=== PATIENT | male | born 1965 | race Caucasian/White ===

== ENCOUNTER 2022-07-29 18:34 | Inpatient (IN) | payer MEDICAID ==
[~2022-07-29] VITALS: Ht 180.3 cm; Wt 155.1 kg
[~2022-07-29 18:34] MED LIST: ATOR40TA7 PO; BUPR100T13 PO; GABAPENTIN 1200 MG; HYDROCODONE 10/325; LANS30CA37 PO; LISI40TA13 PO; ZOLP10TA PO
[2022-07-29] MEDS ORDERED: HYDROcodone/acetaminophen 10/325mg tab PO ONE (21:50)
[2022-07-29] MEDS ORDERED: furosemide 10 MG/1 ML 10ml inj IV ONE (21:50)
[2022-07-29 22:07] LABS: CLARITY,URINE CLEAR (Clear); COLOR,URINE YELLOW (Yellow); GLUCOSE, URINE 100 mg/dl (Neg); KETONES,URINE NEGATIVE (Neg); LEUKOCYTE ESTERASE ,URINE NEGATIVE (Neg); NITRITES, URINE NEGATIVE (Neg); OCCULT BLOOD,URINE NEGATIVE (Neg); PH,URINE 7.5 (4.8-8.0); PROTEIN,URINE NEGATIVE (Neg)
[2022-07-29 22:13] LABS: UA COLLECTION TYPE NON-SPECIFIED
[2022-07-29 22:36] LABS: BASOPHILS # (AUTO) 0.1 X10'3 (0-0.2); EOSINOPHILS # (AUTO) 0.3 X10'3 (0-0.9); EOSINOPHILS % (AUTO) 2.8 % (0-6); HEMATOCRIT 38.7 % (42.0-52.0); HEMOGLOBIN 12.6 g/dl (14.0-17.9); LYMPHOCYTES # (AUTO) 2.7 X10'3 (1.1-4.8); LYMPHOCYTES % (AUTO) 22.6 % (21-51); MEAN CORPUSCULAR HEMOGLOBIN 32.3 PG (27.0-31.0); MEAN CORPUSCULAR HGB CONC 32.7 g/dL (33.0-36.5); MEAN CORPUSCULAR VOLUME 98.9 FL (78-98); MEAN PLATELET VOLUME 6.1 FL (7.4-10.4); MONOCYTES # (AUTO) 1.1 X10'3 (0-0.9); MONOCYTES % (AUTO) 9.3 % (2-12); NEUTROPHILS # (AUTO) 7.7 X10'3 (1.8-7.7); NEUTROPHILS % (AUTO) 64.3 % (42-75); PLATELET COUNT 313 X10'3 (140-440); RED BLOOD COUNT 3.91 X10'6 (4.70-6.10); RED CELL DISTRIBUTION WIDTH 16.3 % (11.5-14.5); WHITE BLOOD COUNT 11.9 X10'3 (4.5-11.0)
[2022-07-29 22:57] LABS: ANISOCYTOSIS 1+; NUCLEATED RED BLOOD CELLS 2 /100WBC (0-0); PLATELET ESTIMATE NORMAL; TOTAL CELLS COUNTED 100; TOXIC GRANULATION 1+; TOXIC VACUOLATION FEW
[2022-07-29 22:58] LABS: POLYCHROMASIA FEW
[2022-07-29 22:59] LABS: ALANINE AMINOTRANSFERASE 24 U/L (12-78); ALBUMIN 3.2 G/DL (3.4-5.0); ALBUMIN/GLOBULIN RATIO 0.7 (1.1-1.5); ALKALINE PHOSPHATASE 129 IU/L (46-116); ANION GAP 10 (8-16); ASPARTATE AMINO TRANSFERASE 17 U/L (10-37); BILIRUBIN,TOTAL 0.3 MG/DL (0.1-1.0); BLOOD UREA NITROGEN 17 MG/DL (7-18); BUN/CREATININE RATIO 18.5 (5.4-32.0); CALCIUM 8.6 MG/DL (8.5-10.1); CHLORIDE 102 MMOL/L (99-107); CREATININE 0.92 MG/DL (0.60-1.10); GLUCOSE 125 MG/DL (70-104); MAGNESIUM 2.1 MG/DL (1.5-2.4); POTASSIUM 3.9 MMOL/L (3.5-5.1); SODIUM 142 MMOL/L (135-145); TOTAL CARBON DIOXIDE 30.4 MMOL/L (24-32); TOTAL PROTEIN 7.6 G/DL (6.4-8.2); eGFR 85 ML/MIN
[2022-07-29] MEDS ORDERED: vancomycin/NS 1 GM ADD-VANTAGE 250 ML IV ONE (23:15)
[2022-07-29] MEDS ORDERED: piperacillin/tazo 3.375gm/50ml 50 ML IV ONE (23:15)
--- NOTE | 2022-07-29 23:48 | NUR ---
PT PLACED ON 2L OF O2 DUE TO O2 SATURATION OF 86-88. PER PT HE USES 2L OF O2 AT HOME.
[2022-07-30] MEDS ORDERED: ondansetron 4mg rapidly disintigrating tab PO PRN (02:20)
[2022-07-30] MEDS ORDERED: HYDROmorphone inj. 0.5 MG/0.5 ML DISP.SYRIN IV PRN (02:20)
[2022-07-30] MEDS ORDERED: metoclopramide 5 mg/ml inj IV PRN (02:20)
[2022-07-30] MEDS ORDERED: magnesium hydroxide 30ml (MOM) UD suspension PO PRN (02:20)
[2022-07-30] MEDS ORDERED: diphenhydrAMINE 50 mg/ml inj IV PRN (02:20)
[2022-07-30] MEDS ORDERED: morphine 2 MG/ML inj. syringe IV PRN ×2 (02:20)
[2022-07-30] MEDS ORDERED: acetaminophen 650mg rectal suppository RC PRN (02:20)
[2022-07-30] MEDS ORDERED: bisacodyl 10mg suppository rectal RC PRN (02:20)
[2022-07-30] MEDS ORDERED: mag hydrox/Alum hydrox/simeth 30ml oral suspension PO PRN (02:20)
[2022-07-30] MEDS ORDERED: acetaminophen 325mg tablet PO PRN ×2 (02:20)
[2022-07-30] MEDS ORDERED: ondansetron/PF 4mg/2ml inj IV PRN (02:20)
[2022-07-30 02:57] LABS: URINE AMPHETAMINE SCREEN NEGATIVE (Neg); URINE BARBITUATE SCREEN NEGATIVE (Neg); URINE BENZODIAZEPINES SCREEN NEGATIVE (Neg); URINE CANNABINOID SCREEN NEGATIVE (Neg); URINE COCAINE SCREEN NEGATIVE (Neg); URINE METHADONE SCREEN NEGATIVE (Neg); URINE OPIATE SCREEN NEGATIVE (Neg); URINE PHENCYCLIDINE SCREEN NEGATIVE (Neg)
[2022-07-30 03:34] LABS: APTT 30 SECONDS (22-32)
[2022-07-30 03:36] LABS: HEMOGLOBIN A1C 6.9 % (4.5-6.2)
[2022-07-30 03:45] LABS: CREATINE KINASE 102 U/L (39-308); PHOSPHORUS 3.2 MG/DL (2.3-4.5)
[2022-07-30] MEDS ORDERED: piperacillin/tazo 4.5gm/100ml 100 ML IV SCH (08:00)
[2022-07-30] MEDS ORDERED: vancomycin/NS 1 GM ADD-VANTAGE 250 ML IV SCH (08:00)
[2022-07-30] MEDS: vancomycin/NS 1 GM ADD-VANTAGE 250 ML IV SCH ×2 (08:23→16:26)
[2022-07-30] MEDS: pantoprazole 40mg Tablet.DR PO SCH (08:24)
[2022-07-30] MEDS: docusate sod 100mg capsule PO SCH ×2 (08:24→20:00)
[2022-07-30] MEDS: heparin, porcine 5000 units/ml vial SQ SCH ×2 (08:24→16:37)
[2022-07-30] MEDS: furosemide 40mg/4ml inj IV SCH ×2 (13:14→20:32)
[2022-07-30] MEDS ORDERED: ARIP30TA22 PO (13:33)
[2022-07-30] MEDS ORDERED: ALBU18HF2 PO (13:33)
[2022-07-30] MEDS ORDERED: NAPR375T5 PO (13:33)
[2022-07-30] MEDS ORDERED: GABA600T13 PO (13:33)
[2022-07-30] MEDS ORDERED: TRAZ-256 PO (13:33)
[2022-07-30] MEDS ORDERED: PANT40TA54 PO (13:33)
[2022-07-30] MEDS ORDERED: FURO20TA4 PO (13:33)
[2022-07-30] MEDS ORDERED: TIOT18CA3 INH (13:33)
[2022-07-30] MEDS ORDERED: ATOR40TA72 PO (13:33)
[2022-07-30] MEDS: diphenhydrAMINE 25mg capsule PO PRN (15:44)
[2022-07-30] MEDS: HYDROcodone/acetaminophen 5mg/325mg tablet PO PRN (20:31)
[2022-07-30] MEDS ORDERED: temazepam 15mg capsule PO PRN (21:00)
[2022-07-30] MEDS ORDERED: VANCOMYCIN LEVEL IV ONE (23:30)
[2022-07-31] MEDS: nystatin 15 GM powder TP SCH ×4 (00:43→20:57)
[2022-07-31] MEDS: vancomycin/NS 1 GM ADD-VANTAGE 250 ML IV SCH ×2 (00:51→08:05)
[2022-07-31 04:39] LABS: BASOPHILS # (AUTO) 0.1 X10'3 (0-0.2); BASOPHILS % (AUTO) 0.8 % (0-1); EOSINOPHILS # (AUTO) 0.3 X10'3 (0-0.9); EOSINOPHILS % (AUTO) 3.2 % (0-6); HEMATOCRIT 34.8 % (42.0-52.0); HEMOGLOBIN 11.6 g/dl (14.0-17.9); LYMPHOCYTES # (AUTO) 2.2 X10'3 (1.1-4.8); LYMPHOCYTES % (AUTO) 21.8 % (21-51); MEAN CORPUSCULAR HEMOGLOBIN 33.2 PG (27.0-31.0); MEAN CORPUSCULAR HGB CONC 33.3 g/dL (33.0-36.5); MEAN CORPUSCULAR VOLUME 99.5 FL (78-98); MEAN PLATELET VOLUME 6.8 FL (7.4-10.4); MONOCYTES # (AUTO) 0.9 X10'3 (0-0.9); MONOCYTES % (AUTO) 8.7 % (2-12); NEUTROPHILS # (AUTO) 6.5 X10'3 (1.8-7.7); NEUTROPHILS % (AUTO) 65.5 % (42-75); PLATELET COUNT 301 X10'3 (140-440); RED CELL DISTRIBUTION WIDTH 16.4 % (11.5-14.5); WHITE BLOOD COUNT 9.9 X10'3 (4.5-11.0)
[2022-07-31 05:03] LABS: ALANINE AMINOTRANSFERASE 19 U/L (12-78); ALBUMIN 2.8 G/DL (3.4-5.0); ALBUMIN/GLOBULIN RATIO 0.7 (1.1-1.5); ALKALINE PHOSPHATASE 105 IU/L (46-116); ANION GAP 4 (8-16); ASPARTATE AMINO TRANSFERASE 18 U/L (10-37); BILIRUBIN,TOTAL 0.4 MG/DL (0.1-1.0); BLOOD UREA NITROGEN 17 MG/DL (7-18); BUN/CREATININE RATIO 18.9 (5.4-32.0); CALCIUM 8.6 MG/DL (8.5-10.1); CHLORIDE 103 MMOL/L (99-107); CHOL/HDL RATIO 2.8 (0.00-4.99); CHOLESTEROL 87 MG/DL (0-200); GLUCOSE 116 MG/DL (70-104); HDL CHOLESTEROL 31 MG/DL (35-60); LDL CHOLESTEROL 47 MG/DL (50-100); SODIUM 140 MMOL/L (135-145); TOTAL CARBON DIOXIDE 32.7 MMOL/L (24-32); TRIGLYCERIDES 85 MG/DL (20-135); eGFR 88 ML/MIN
[2022-07-31] MEDS: docusate sod 100mg capsule PO SCH ×2 (07:52→20:53)
[2022-07-31] MEDS: pantoprazole 40mg Tablet.DR PO SCH ×2 (07:52→20:53)
[2022-07-31] MEDS: HYDROcodone/acetaminophen 10/325mg tab PO PRN ×2 (07:53→21:00)
[2022-07-31] MEDS: heparin, porcine 5000 units/ml vial SQ SCH ×4 (07:53→23:49)
[2022-07-31] MEDS: furosemide 40mg/4ml inj IV SCH (07:53)
[2022-07-31] MEDS: vitamin A & D ointment-NF 1 APPLIC TUBE TP SCH (08:00)
--- NOTE | 2022-07-31 08:00 | NUR ---
A&D cream held as nystatin powder applied and pt to have skin cleansed later today and will apply cream afterwards.
[2022-07-31] MEDS ORDERED: MESSAGE TO PHARMACY PO ONE (12:45)
[2022-07-31] MEDS ORDERED: DEXTROSE 15 GM of carb/4 tabs (each vial/BOTTLE has 4 tablets) PO PRN ×2 (12:45)
[2022-07-31] MEDS ORDERED: insulin Lispro (HumaLOG) vial - multi-dose SQ SCH (12:45)
[2022-07-31] MEDS ORDERED: dextrose 50%-water 50ml dispensing syringe IV PRN ×2 (12:45)
[2022-07-31] MEDS ORDERED: glucagon, human recombinant 1mg kit SUBCUT PRN (12:45)
[2022-07-31 14:00] VITALS: BP 136/75
--- NOTE | 2022-07-31 14:00 | NUR ---
patient arrived to floor. vss.
[2022-07-31] MEDS: metFORMIN 500mg tablet PO SCH (17:00)
[2022-07-31] MEDS: ipratropium 0.5 MG/2.5ML nebule NEB SCH ×2 (17:00→20:15)
--- NOTE | 2022-07-31 17:46 | NUR ---
Student Medication Administration: For this medication-pass time frame, all medication were reviewed, dispensed, administered and documented per hospital policy by amalia salmeron student nurse with dev robledo instructor RN.
[2022-07-31] MEDS: VANCOmycin 1250MG/NS 250ml Bag 250 ML IV SCH ×2 (17:51→23:49)
[2022-07-31 19:43] VITALS: BP 134/79
[2022-07-31] MEDS: ARIPIPRAZOLE 15 MG TABLET PO SCH (20:52)
[2022-07-31] MEDS: traZODone 50mg tablet PO SCH (20:52)
[2022-07-31] MEDS: gabapentin 300mg capsule PO SCH (20:52)
[2022-07-31] MEDS: atorvastatin 20mg tablet PO SCH (20:52)
[2022-07-31] MEDS: furosemide 40mg tablet PO SCH (20:53)
[2022-07-31] MEDS: insulin glargine (Lantus) pen - multi-dose SQ SCH (20:57)
[2022-07-31 22:04] VITALS: BP 128/71
--- NOTE | 2022-07-31 23:53 | NUR ---
Problems reprioritized. Patient report given, questions answered & plan of care reviewed with SHIELA Diaz.
--- NOTE | 2022-08-01 | NUR ---
Patient in room [facility]. I have received report from RONDA and had the opportunity to ask questions and assume patient care. PT RESTING AT THIS TIME
[2022-08-01] MEDS: HYDROcodone/acetaminophen 10/325mg tab PO PRN (00:58)
[2022-08-01] MEDS: ipratropium 0.5 MG/2.5ML nebule NEB SCH ×4 (03:55→21:16)
--- NOTE | 2022-08-01 06:36 | NUR ---
Patient in room [facility]. I have received report from Dian KUO and had the opportunity to ask questions and assume patient care.
[2022-08-01 06:38] LABS: BASOPHILS # (AUTO) 0.1 X10'3 (0-0.2); BASOPHILS % (AUTO) 1.1 % (0-1); EOSINOPHILS # (AUTO) 0.3 X10'3 (0-0.9); EOSINOPHILS % (AUTO) 3.3 % (0-6); HEMATOCRIT 34.6 % (42.0-52.0); HEMOGLOBIN 11.7 g/dl (14.0-17.9); LYMPHOCYTES # (AUTO) 2.4 X10'3 (1.1-4.8); LYMPHOCYTES % (AUTO) 25.2 % (21-51); MEAN CORPUSCULAR HEMOGLOBIN 33.5 PG (27.0-31.0); MEAN CORPUSCULAR HGB CONC 33.8 g/dL (33.0-36.5); MEAN CORPUSCULAR VOLUME 98.9 FL (78-98); MEAN PLATELET VOLUME 6.3 FL (7.4-10.4); MONOCYTES # (AUTO) 0.8 X10'3 (0-0.9); MONOCYTES % (AUTO) 8.2 % (2-12); NEUTROPHILS # (AUTO) 5.8 X10'3 (1.8-7.7); NEUTROPHILS % (AUTO) 62.2 % (42-75); PLATELET COUNT 295 X10'3 (140-440); RED CELL DISTRIBUTION WIDTH 16.1 % (11.5-14.5); WHITE BLOOD COUNT 9.3 X10'3 (4.5-11.0)
[2022-08-01 06:47] VITALS: BP 123/66
[2022-08-01 06:50] LABS: ALANINE AMINOTRANSFERASE 15 U/L (12-78); ALBUMIN 2.9 G/DL (3.4-5.0); ALBUMIN/GLOBULIN RATIO 0.7 (1.1-1.5); ALKALINE PHOSPHATASE 105 IU/L (46-116); ANION GAP 4 (8-16); ASPARTATE AMINO TRANSFERASE 24 U/L (10-37); BILIRUBIN,TOTAL 0.5 MG/DL (0.1-1.0); BLOOD UREA NITROGEN 16 MG/DL (7-18); BUN/CREATININE RATIO 18.4 (5.4-32.0); CALCIUM 8.7 MG/DL (8.5-10.1); CHLORIDE 100 MMOL/L (99-107); CREATININE 0.87 MG/DL (0.60-1.10); GLUCOSE 99 MG/DL (70-104); POTASSIUM 3.9 MMOL/L (3.5-5.1); SODIUM 137 MMOL/L (135-145); TOTAL CARBON DIOXIDE 32.8 MMOL/L (24-32); TOTAL PROTEIN 7.2 G/DL (6.4-8.2); eGFR > 90 ML/MIN
[2022-08-01] MEDS: metFORMIN 500mg tablet PO SCH ×3 (07:00→17:00)
[2022-08-01] MEDS: gabapentin 300mg capsule PO SCH ×2 (07:50→20:59)
[2022-08-01] MEDS: furosemide 40mg tablet PO SCH ×2 (07:50→20:59)
[2022-08-01] MEDS: pantoprazole 40mg Tablet.DR PO SCH ×2 (07:51→21:00)
[2022-08-01] MEDS: docusate sod 100mg capsule PO SCH ×2 (07:51→20:00)
[2022-08-01] MEDS: VANCOmycin 1250MG/NS 250ml Bag 250 ML IV SCH ×2 (07:52→16:59)
[2022-08-01] MEDS: nystatin 15 GM powder TP SCH ×3 (07:55→21:02)
[2022-08-01] MEDS: vitamin A & D ointment-NF 1 APPLIC TUBE TP SCH (07:55)
[2022-08-01] MEDS: heparin, porcine 5000 units/ml vial SQ SCH ×3 (07:58→23:50)
[2022-08-01] MEDS: CefTRIAXone/D5W-Rocephin 1gm 50 ML IV SCH (10:38)
[2022-08-01 11:11] VITALS: BP 131/81
--- NOTE | 2022-08-01 15:17 | NUR ---
PAGER ID: [phone] MESSAGE: Lenard Surg [id number] re: [id number] Raffi Ro Patient frequency of 2 to1 heart block increasing, and missed beats increasing to 6-7 dropping rate to 30's to 40's at times, did you want to transfer to tele? Thanks Lenard. Addendum: 08/01/22 at 1532 by Aaron Farias RN Conferred with and will attempt to clearify if transfer is need after calling jukebox route driver.
[2022-08-01] MEDS ORDERED: VANCOMYCIN LEVEL IV ONE (15:30)
[2022-08-01 18:00] VITALS: BP 139/78
--- NOTE | 2022-08-01 18:15 | NUR ---
Assumed care from Lenard KUO.
--- NOTE | 2022-08-01 18:48 | NUR ---
Problems reprioritized. Patient report given, questions answered & plan of care reviewed with DANIELLA KUO.
[2022-08-01] MEDS: insulin glargine (Lantus) pen - multi-dose SQ SCH (21:00)
[2022-08-01] MEDS: traZODone 50mg tablet PO SCH (21:00)
[2022-08-01] MEDS: atorvastatin 20mg tablet PO SCH (21:00)
[2022-08-01] MEDS: ARIPIPRAZOLE 15 MG TABLET PO SCH (21:00)
[2022-08-01] MEDS: HYDROcodone/acetaminophen 5mg/325mg tablet PO PRN (21:57)
[2022-08-01] MEDS: vancomycin/NS 1 GM ADD-VANTAGE 250 ML IV SCH (23:49)
[2022-08-02] MEDS: ipratropium 0.5 MG/2.5ML nebule NEB SCH ×4 (02:58→20:26)
[2022-08-02 06:00] VITALS: BP 130/78
[2022-08-02 06:17] LABS: BASOPHILS # (AUTO) 0.1 X10'3 (0-0.2); BASOPHILS % (AUTO) 1.4 % (0-1); EOSINOPHILS # (AUTO) 0.3 X10'3 (0-0.9); EOSINOPHILS % (AUTO) 3.1 % (0-6); HEMATOCRIT 35.7 % (42.0-52.0); LYMPHOCYTES # (AUTO) 2.1 X10'3 (1.1-4.8); LYMPHOCYTES % (AUTO) 23.6 % (21-51); MEAN CORPUSCULAR HEMOGLOBIN 33.2 PG (27.0-31.0); MEAN CORPUSCULAR HGB CONC 33.7 g/dL (33.0-36.5); MEAN CORPUSCULAR VOLUME 98.6 FL (78-98); MEAN PLATELET VOLUME 6.3 FL (7.4-10.4); MONOCYTES # (AUTO) 0.8 X10'3 (0-0.9); MONOCYTES % (AUTO) 8.8 % (2-12); NEUTROPHILS # (AUTO) 5.6 X10'3 (1.8-7.7); NEUTROPHILS % (AUTO) 63.1 % (42-75); PLATELET COUNT 298 X10'3 (140-440); RED BLOOD COUNT 3.62 X10'6 (4.70-6.10); WHITE BLOOD COUNT 8.8 X10'3 (4.5-11.0)
--- NOTE | 2022-08-02 06:39 | NUR ---
Report to Lenard KUO.
[2022-08-02] MEDS: metFORMIN 500mg tablet PO SCH ×3 (07:00→17:00)
[2022-08-02 07:03] LABS: ALANINE AMINOTRANSFERASE 16 U/L (12-78); ALBUMIN 2.9 G/DL (3.4-5.0); ALBUMIN/GLOBULIN RATIO 0.6 (1.1-1.5); ALKALINE PHOSPHATASE 103 IU/L (46-116); ANION GAP 3 (8-16); ASPARTATE AMINO TRANSFERASE 25 U/L (10-37); BILIRUBIN,TOTAL 0.5 MG/DL (0.1-1.0); BLOOD UREA NITROGEN 14 MG/DL (7-18); BUN/CREATININE RATIO 15.4 (5.4-32.0); CALCIUM 8.5 MG/DL (8.5-10.1); CHLORIDE 100 MMOL/L (99-107); CREATININE 0.91 MG/DL (0.60-1.10); GLUCOSE 98 MG/DL (70-104); POTASSIUM 3.8 MMOL/L (3.5-5.1); SODIUM 137 MMOL/L (135-145); TOTAL CARBON DIOXIDE 34.5 MMOL/L (24-32); TOTAL PROTEIN 7.4 G/DL (6.4-8.2); eGFR 86 ML/MIN
--- NOTE | 2022-08-02 07:03 | NUR ---
Patient in room [facility]. I have received report from Elena KUO and had the opportunity to ask questions and assume patient care.
[2022-08-02] MEDS: pantoprazole 40mg Tablet.DR PO SCH ×2 (07:39→21:03)
[2022-08-02] MEDS: docusate sod 100mg capsule PO SCH ×2 (07:39→21:03)
[2022-08-02] MEDS: gabapentin 300mg capsule PO SCH ×2 (07:40→21:03)
[2022-08-02] MEDS: furosemide 40mg tablet PO SCH ×2 (07:40→21:03)
[2022-08-02] MEDS: heparin, porcine 5000 units/ml vial SQ SCH ×3 (07:41→23:44)
[2022-08-02] MEDS: vancomycin/NS 1 GM ADD-VANTAGE 250 ML IV SCH ×3 (07:43→23:44)
[2022-08-02] MEDS: nystatin 15 GM powder TP SCH ×3 (07:48→21:02)
[2022-08-02] MEDS: vitamin A & D ointment-NF 1 APPLIC TUBE TP SCH (07:49)
[2022-08-02 10:00] VITALS: BP 135/79
[2022-08-02] MEDS: CefTRIAXone/D5W-Rocephin 1gm 50 ML IV SCH (10:28)
[2022-08-02 18:31] VITALS: BP 137/77
--- NOTE | 2022-08-02 18:40 | NUR ---
Problems reprioritized. Patient report given, questions answered & plan of care reviewed with Maria KUO.
[2022-08-02] MEDS: insulin glargine (Lantus) pen - multi-dose SQ SCH (21:00)
[2022-08-02] MEDS: ARIPIPRAZOLE 15 MG TABLET PO SCH (21:03)
[2022-08-02] MEDS: atorvastatin 20mg tablet PO SCH (21:03)
[2022-08-02] MEDS: traZODone 50mg tablet PO SCH (21:03)
--- NOTE | 2022-08-02 21:04 | NUR ---
PATIENT REFUSING BLOOD SUGAR CHECKS TONIGHT. STATES HIS FINGERS ARE GETTING SORE.
[2022-08-02 22:42] VITALS: BP 129/65
[2022-08-02] MEDS ORDERED: VANCOMYCIN LEVEL IV ONE (23:30)
[2022-08-03] MEDS: ipratropium 0.5 MG/2.5ML nebule NEB SCH ×4 (02:24→20:03)
[2022-08-03 05:58] LABS: BASOPHILS % (AUTO) 0.5 % (0-1); EOSINOPHILS # (AUTO) 0.2 X10'3 (0-0.9); EOSINOPHILS % (AUTO) 2.8 % (0-6); HEMATOCRIT 35.9 % (42.0-52.0); HEMOGLOBIN 12.2 g/dl (14.0-17.9); LYMPHOCYTES # (AUTO) 2.2 X10'3 (1.1-4.8); LYMPHOCYTES % (AUTO) 25.5 % (21-51); MEAN CORPUSCULAR HEMOGLOBIN 33.5 PG (27.0-31.0); MEAN CORPUSCULAR HGB CONC 34.1 g/dL (33.0-36.5); MEAN CORPUSCULAR VOLUME 98.3 FL (78-98); MONOCYTES # (AUTO) 0.7 X10'3 (0-0.9); MONOCYTES % (AUTO) 8.6 % (2-12); NEUTROPHILS # (AUTO) 5.4 X10'3 (1.8-7.7); NEUTROPHILS % (AUTO) 62.6 % (42-75); PLATELET COUNT 310 X10'3 (140-440); RED BLOOD COUNT 3.65 X10'6 (4.70-6.10); RED CELL DISTRIBUTION WIDTH 15.9 % (11.5-14.5); WHITE BLOOD COUNT 8.7 X10'3 (4.5-11.0)
[2022-08-03 06:18] LABS: ALANINE AMINOTRANSFERASE 16 U/L (12-78); ALBUMIN/GLOBULIN RATIO 0.6 (1.1-1.5); ALKALINE PHOSPHATASE 96 IU/L (46-116); ANION GAP 4 (8-16); ASPARTATE AMINO TRANSFERASE 24 U/L (10-37); BILIRUBIN,TOTAL 0.5 MG/DL (0.1-1.0); BLOOD UREA NITROGEN 14 MG/DL (7-18); BUN/CREATININE RATIO 16.1 (5.4-32.0); CALCIUM 9.1 MG/DL (8.5-10.1); CHLORIDE 100 MMOL/L (99-107); CREATININE 0.87 MG/DL (0.60-1.10); GLUCOSE 102 MG/DL (70-104); SODIUM 136 MMOL/L (135-145); TOTAL CARBON DIOXIDE 31.9 MMOL/L (24-32); TOTAL PROTEIN 7.7 G/DL (6.4-8.2); eGFR > 90 ML/MIN
--- NOTE | 2022-08-03 06:30 | NUR ---
Patient in room [facility]. I have received report from KENDRICK KUO and had the opportunity to ask questions and assume patient care.
[2022-08-03] MEDS: metFORMIN 500mg tablet PO SCH ×3 (07:00→16:36)
[2022-08-03 07:08] VITALS: BP 125/64
[2022-08-03] MEDS: vitamin A & D ointment-NF 1 APPLIC TUBE TP SCH (08:00)
[2022-08-03] MEDS: nystatin 15 GM powder TP SCH ×3 (08:00→21:38)
[2022-08-03] MEDS: furosemide 40mg tablet PO SCH ×2 (08:20→21:00)
[2022-08-03] MEDS: pantoprazole 40mg Tablet.DR PO SCH ×2 (08:20→21:01)
[2022-08-03] MEDS: docusate sod 100mg capsule PO SCH ×2 (08:20→21:00)
[2022-08-03] MEDS: vancomycin/NS 1 GM ADD-VANTAGE 250 ML IV SCH (08:21)
[2022-08-03] MEDS: heparin, porcine 5000 units/ml vial SQ SCH ×2 (08:21→16:51)
[2022-08-03] MEDS: gabapentin 300mg capsule PO SCH ×2 (08:21→21:00)
--- NOTE | 2022-08-03 09:14 | NUR ---
DM Consult: Pt admit DX BLE Cellulitis and T2DM A1C 6.9% though no prior hx DM, no home DM meds, and Glu WNL not receiving Glu coverage while PO ~75% Na-restricted diet per EMR. CHINEDU d/w RN regarding A1C recheck if MD agreeable today. Will monitor for further A1C results and nutrition intervention needs. Addendum: 08/03/22 at [address] Amended: Links added.
[2022-08-03] MEDS: CefTRIAXone/D5W-Rocephin 1gm 50 ML IV SCH (10:03)
[2022-08-03 11:00] VITALS: BP 125/71
[2022-08-03] MEDS: VANCOmycin 1250MG/NS 250ml Bag 250 ML IV SCH (16:51)
[2022-08-03] MEDS: HYDROcodone/acetaminophen 10/325mg tab PO PRN (16:57)
[2022-08-03 18:00] VITALS: BP 133/78
--- NOTE | 2022-08-03 18:10 | NUR ---
Patient in room [facility]. I have received report from SHIELA Martinez and had the opportunity to ask questions and assume patient care.
--- NOTE | 2022-08-03 18:46 | NUR ---
Problems reprioritized. Patient report given, questions answered & plan of care reviewed with VINCENT KUO.
[2022-08-03] MEDS: insulin glargine (Lantus) pen - multi-dose SQ SCH (21:00)
[2022-08-03] MEDS: ARIPIPRAZOLE 15 MG TABLET PO SCH (21:00)
[2022-08-03] MEDS: traZODone 50mg tablet PO SCH (21:00)
[2022-08-03] MEDS: atorvastatin 20mg tablet PO SCH (21:00)
[2022-08-03 22:00] VITALS: BP 116/71
[2022-08-04] MEDS: heparin, porcine 5000 units/ml vial SQ SCH ×3 (00:01→17:23)
[2022-08-04] MEDS: diphenhydrAMINE 25mg capsule PO PRN (00:34)
[2022-08-04] MEDS: ipratropium 0.5 MG/2.5ML nebule NEB SCH ×4 (03:28→21:10)
[2022-08-04 06:00] VITALS: BP 132/78
--- NOTE | 2022-08-04 06:38 | NUR ---
Problems reprioritized. Patient report given, questions answered & plan of care reviewed with SHIELA Osullivan.
--- NOTE | 2022-08-04 06:49 | NUR ---
Patient in room [facility]. I have received report from Odalys KUO and had the opportunity to ask questions and assume patient care.
[2022-08-04] MEDS: metFORMIN 500mg tablet PO SCH ×3 (07:00→16:57)
[2022-08-04] MEDS: docusate sod 100mg capsule PO SCH ×2 (07:39→19:05)
[2022-08-04] MEDS: pantoprazole 40mg Tablet.DR PO SCH ×2 (07:39→21:17)
[2022-08-04] MEDS: furosemide 40mg tablet PO SCH ×2 (07:39→19:05)
[2022-08-04] MEDS: gabapentin 300mg capsule PO SCH ×2 (07:39→19:05)
[2022-08-04] MEDS: CefTRIAXone/D5W-Rocephin 1gm 50 ML IV SCH (07:40)
[2022-08-04] MEDS: VANCOmycin 1250MG/NS 250ml Bag 250 ML IV SCH ×2 (07:40)
[2022-08-04] MEDS: nystatin 15 GM powder TP SCH ×3 (08:00→21:55)
[2022-08-04] MEDS: vitamin A & D ointment-NF 1 APPLIC TUBE TP SCH (08:00)
[2022-08-04 10:40] LABS: BASOPHILS # (AUTO) 0.1 X10'3 (0-0.2); BASOPHILS % (AUTO) 1.3 % (0-1); EOSINOPHILS # (AUTO) 0.2 X10'3 (0-0.9); EOSINOPHILS % (AUTO) 2.2 % (0-6); HEMATOCRIT 37.8 % (42.0-52.0); HEMOGLOBIN 12.6 g/dl (14.0-17.9); LYMPHOCYTES # (AUTO) 1.7 X10'3 (1.1-4.8); LYMPHOCYTES % (AUTO) 19.2 % (21-51); MEAN CORPUSCULAR HEMOGLOBIN 32.8 PG (27.0-31.0); MEAN CORPUSCULAR HGB CONC 33.4 g/dL (33.0-36.5); MEAN CORPUSCULAR VOLUME 98.3 FL (78-98); MONOCYTES # (AUTO) 0.7 X10'3 (0-0.9); MONOCYTES % (AUTO) 7.2 % (2-12); NEUTROPHILS # (AUTO) 6.4 X10'3 (1.8-7.7); NEUTROPHILS % (AUTO) 70.1 % (42-75); PLATELET COUNT 313 X10'3 (140-440); RED BLOOD COUNT 3.84 X10'6 (4.70-6.10); RED CELL DISTRIBUTION WIDTH 15.7 % (11.5-14.5); WHITE BLOOD COUNT 9.1 X10'3 (4.5-11.0)
[2022-08-04 10:59] LABS: ALANINE AMINOTRANSFERASE 20 U/L (12-78); ALBUMIN 3.3 G/DL (3.4-5.0); ALBUMIN/GLOBULIN RATIO 0.7 (1.1-1.5); ALKALINE PHOSPHATASE 100 IU/L (46-116); ANION GAP 3 (8-16); ASPARTATE AMINO TRANSFERASE 24 U/L (10-37); BILIRUBIN,TOTAL 0.4 MG/DL (0.1-1.0); BLOOD UREA NITROGEN 16 MG/DL (7-18); CALCIUM 8.9 MG/DL (8.5-10.1); CHLORIDE 96 MMOL/L (99-107); CREATININE 0.94 MG/DL (0.60-1.10); GLUCOSE 135 MG/DL (70-104); POTASSIUM 4.3 MMOL/L (3.5-5.1); SODIUM 135 MMOL/L (135-145); TOTAL CARBON DIOXIDE 35.7 MMOL/L (24-32); TOTAL PROTEIN 8.3 G/DL (6.4-8.2); eGFR 83 ML/MIN
[2022-08-04 11:00] VITALS: BP 115/70
--- NOTE | 2022-08-04 13:21 | NUR ---
Initial: Pt admit DX BLE cellulitis, dyslipidemia, bipolar disorder, and T2DM A1C 6.9%. CHINEDU reddy MD today regarding A1C recheck given pt w/ no home DM meds per clinical pharmacist, Glu WNL LOS eating 75-100% Na-restricted diet, and pt refusing metformin not receiving Glu coverage this LOS. CHINEDU d/w RN who reports pt says he is not a diabetic continues to refuse metformin. PO mostly 100% recent meals meeting estimated needs w/ current PO trends. LBM 08/03 receiving routine colace. Will monitor for updated A1C results and nutrition intervention needs; pt not appropriate for DM education at this time given current objective data this admit. Rec: 1. continue Na-restricted diet 2. routine bowel care 3. weekly wts 4. monitor for updated A1C results; unsure of 6.9% accuracy given current objective data and pt hx Addendum: 08/04/22 at [address] Amended: Links added.
[2022-08-04] MEDS ORDERED: VANCOMYCIN LEVEL IV ONE (15:30)
--- NOTE | 2022-08-04 17:02 | NUR ---
PAGER ID: [phone] MESSAGE: Be Ro#[id number] - FYI- Pt has a critical Vanco of 22.4 pharmacy adjusted it. Shi Galvan [phone]
[2022-08-04 18:00] VITALS: BP 122/74
--- NOTE | 2022-08-04 18:05 | NUR ---
Patient in room [facility]. I have received report from SHIELA Osullivan and had the opportunity to ask questions and assume patient care.
--- NOTE | 2022-08-04 18:20 | NUR ---
Problems reprioritized. Patient report given, questions answered & plan of care reviewed with Odalys KUO.
[2022-08-04] MEDS: vancomycin/NS 1 GM ADD-VANTAGE 250 ML IV SCH (19:05)
[2022-08-04] MEDS: insulin glargine (Lantus) pen - multi-dose SQ SCH (21:00)
[2022-08-04] MEDS: traZODone 50mg tablet PO SCH (21:16)
[2022-08-04] MEDS: atorvastatin 20mg tablet PO SCH (21:17)
[2022-08-04] MEDS: ARIPIPRAZOLE 15 MG TABLET PO SCH (21:17)
[2022-08-04 22:00] VITALS: BP 121/57
[2022-08-05] MEDS: heparin, porcine 5000 units/ml vial SQ SCH ×3 (01:21→17:14)
[2022-08-05] MEDS: vancomycin/NS 1 GM ADD-VANTAGE 250 ML IV SCH ×3 (01:21→17:15)
[2022-08-05] MEDS: ipratropium 0.5 MG/2.5ML nebule NEB SCH ×4 (03:21→20:42)
[2022-08-05 06:00] VITALS: BP 145/78
--- NOTE | 2022-08-05 06:22 | NUR ---
Problems reprioritized. Patient report given, questions answered & plan of care reviewed with SHIELA Osullivan.
[2022-08-05] MEDS: metFORMIN 500mg tablet PO SCH ×3 (06:26→16:55)
--- NOTE | 2022-08-05 06:44 | NUR ---
Patient in room [facility]. I have received report from Odalys KUO and had the opportunity to ask questions and assume patient care.
[2022-08-05] MEDS: CefTRIAXone/D5W-Rocephin 1gm 50 ML IV SCH (07:50)
[2022-08-05] MEDS: gabapentin 300mg capsule PO SCH ×2 (07:51→20:20)
[2022-08-05] MEDS: furosemide 40mg tablet PO SCH ×2 (07:51→20:20)
[2022-08-05] MEDS: docusate sod 100mg capsule PO SCH ×2 (07:51→20:19)
[2022-08-05] MEDS: pantoprazole 40mg Tablet.DR PO SCH ×2 (07:51→20:20)
[2022-08-05] MEDS: nystatin 15 GM powder TP SCH ×3 (07:51→20:21)
[2022-08-05] MEDS: vitamin A & D ointment-NF 1 APPLIC TUBE TP SCH (07:53)
[2022-08-05 10:00] VITALS: BP 119/57
[2022-08-05] MEDS ORDERED: VANCOMYCIN LEVEL IV ONE (16:30)
[2022-08-05 18:00] VITALS: BP 126/68
--- NOTE | 2022-08-05 18:15 | NUR ---
Patient in room [facility]. I have received report from SHIELA Osullivan and had the opportunity to ask questions and assume patient care.
--- NOTE | 2022-08-05 18:30 | NUR ---
Problems reprioritized. Patient report given, questions answered & plan of care reviewed with Odalys KUO.
[2022-08-05] MEDS: ARIPIPRAZOLE 15 MG TABLET PO SCH (20:20)
[2022-08-05] MEDS: atorvastatin 20mg tablet PO SCH (20:20)
[2022-08-05] MEDS: traZODone 50mg tablet PO SCH (20:21)
[2022-08-05] MEDS: insulin glargine (Lantus) pen - multi-dose SQ SCH (21:00)
[2022-08-05 22:00] VITALS: BP 113/66
[2022-08-06] MEDS: vancomycin/NS 1 GM ADD-VANTAGE 250 ML IV SCH ×3 (00:42→16:41)
[2022-08-06] MEDS: heparin, porcine 5000 units/ml vial SQ SCH ×3 (00:42→19:14)
[2022-08-06] MEDS: ipratropium 0.5 MG/2.5ML nebule NEB SCH ×4 (02:37→21:24)
[2022-08-06 06:00] VITALS: BP 104/57
--- NOTE | 2022-08-06 06:36 | NUR ---
Patient in room [facility]. I have received report from Odalys KUO and had the opportunity to ask questions and assume patient care.
--- NOTE | 2022-08-06 06:42 | NUR ---
Problems reprioritized. Patient report given, questions answered & plan of care reviewed with ALBERTO Faria.
[2022-08-06] MEDS: CefTRIAXone/D5W-Rocephin 1gm 50 ML IV SCH (07:48)
[2022-08-06] MEDS: pantoprazole 40mg Tablet.DR PO SCH ×2 (08:07→20:31)
[2022-08-06] MEDS: docusate sod 100mg capsule PO SCH ×2 (08:07→19:15)
[2022-08-06] MEDS: nystatin 15 GM powder TP SCH ×3 (08:08→20:35)
[2022-08-06] MEDS: furosemide 40mg tablet PO SCH ×2 (08:08→19:15)
[2022-08-06] MEDS: vitamin A & D ointment-NF 1 APPLIC TUBE TP SCH (08:08)
[2022-08-06] MEDS: gabapentin 300mg capsule PO SCH ×2 (08:08→19:15)
[2022-08-06 10:00] VITALS: BP 119/62
--- NOTE | 2022-08-06 14:34 | NUR ---
PAGER ID: [phone] MESSAGE: [id number]. Be Ro-patient has been here for 6days and has red rash/spots all over back and abd upon admission. can you pls come take a look when you get a chance. Lul Faria EMPLOYEE BENEFITS ADMINISTRATOR [id number]
--- NOTE | 2022-08-06 14:42 | NUR ---
APRON CLEANER documentation: I have reviewed and agree with all interventions, assessments performed and documented by Giana Hercules LVN.
[2022-08-06 18:00] VITALS: BP 116/62
--- NOTE | 2022-08-06 18:01 | NUR ---
cared for patient today. Patient is very kind and pleasant. During patient assessment, I noticed that patient does have red spots all over back and abd. Patient denies pain or itching. MD was paged and notified. New urinal was given. Patient chair was wiped down and new sheet was placed. Warm wash cloth was given and new gown.
--- NOTE | 2022-08-06 18:16 | NUR ---
Problems reprioritized. Patient report given, questions answered & plan of care reviewed with Pat RN.
[2022-08-06] MEDS: atorvastatin 20mg tablet PO SCH (20:31)
[2022-08-06] MEDS: ARIPIPRAZOLE 15 MG TABLET PO SCH (20:32)
[2022-08-06] MEDS: traZODone 50mg tablet PO SCH (20:34)
[2022-08-06] MEDS: insulin glargine (Lantus) pen - multi-dose SQ SCH (20:35)
[2022-08-06 22:00] VITALS: BP 118/70
[2022-08-07] MEDS: heparin, porcine 5000 units/ml vial SQ SCH ×3 (00:38→16:21)
[2022-08-07] MEDS: vancomycin/NS 1 GM ADD-VANTAGE 250 ML IV SCH ×3 (00:38→17:10)
[2022-08-07] MEDS: ipratropium 0.5 MG/2.5ML nebule NEB SCH ×4 (03:09→20:58)
[2022-08-07 06:44] VITALS: BP 111/64
--- NOTE | 2022-08-07 06:57 | NUR ---
Patient in room [facility]. I have received report from Pat RN and had the opportunity to ask questions and assume patient care.
[2022-08-07] MEDS: pantoprazole 40mg Tablet.DR PO SCH ×2 (07:42→20:25)
[2022-08-07] MEDS: gabapentin 300mg capsule PO SCH ×2 (07:42→20:25)
[2022-08-07] MEDS: furosemide 40mg tablet PO SCH ×2 (07:42→20:25)
[2022-08-07] MEDS: docusate sod 100mg capsule PO SCH ×2 (07:42→20:00)
[2022-08-07] MEDS: CefTRIAXone/D5W-Rocephin 1gm 50 ML IV SCH (07:45)
[2022-08-07] MEDS: diphenhydrAMINE 25mg capsule PO PRN (07:46)
[2022-08-07] MEDS: nystatin 15 GM powder TP SCH ×3 (07:51→20:26)
[2022-08-07] MEDS: vitamin A & D ointment-NF 1 APPLIC TUBE TP SCH (07:52)
[2022-08-07 11:26] VITALS: BP 123/66
--- NOTE | 2022-08-07 18:36 | NUR ---
Patient in room [facility]. I have received report from Destini KUO and had the opportunity to ask questions and assume patient care.
--- NOTE | 2022-08-07 18:42 | NUR ---
Patient in room [facility]. I have received report from RENATO KUO and had the opportunity to ask questions and assume patient care.
[2022-08-07] MEDS: ARIPIPRAZOLE 15 MG TABLET PO SCH (20:24)
[2022-08-07] MEDS: traZODone 50mg tablet PO SCH (20:24)
[2022-08-07] MEDS: atorvastatin 20mg tablet PO SCH (20:25)
[2022-08-07] MEDS: insulin glargine (Lantus) pen - multi-dose SQ SCH (21:00)
[2022-08-07 22:00] VITALS: BP 111/59
[2022-08-08] MEDS: vancomycin/NS 1 GM ADD-VANTAGE 250 ML IV SCH ×3 (00:51→16:44)
[2022-08-08] MEDS: heparin, porcine 5000 units/ml vial SQ SCH ×3 (00:52→16:44)
[2022-08-08] MEDS: ipratropium 0.5 MG/2.5ML nebule NEB SCH ×3 (03:01→21:54)
--- NOTE | 2022-08-08 06:12 | NUR ---
Problems reprioritized. Patient report given, questions answered & plan of care reviewed with RENATO RN.
[2022-08-08 06:46] LABS: BASOPHILS # (AUTO) 0.1 X10'3 (0-0.2); BASOPHILS % (AUTO) 1.1 % (0-1); EOSINOPHILS # (AUTO) 0.3 X10'3 (0-0.9); EOSINOPHILS % (AUTO) 3.3 % (0-6); HEMATOCRIT 35.7 % (42.0-52.0); HEMOGLOBIN 12.2 g/dl (14.0-17.9); LYMPHOCYTES # (AUTO) 2.4 X10'3 (1.1-4.8); LYMPHOCYTES % (AUTO) 26.8 % (21-51); MEAN CORPUSCULAR HEMOGLOBIN 33.6 PG (27.0-31.0); MEAN CORPUSCULAR HGB CONC 34.1 g/dL (33.0-36.5); MEAN CORPUSCULAR VOLUME 98.4 FL (78-98); MEAN PLATELET VOLUME 6.5 FL (7.4-10.4); MONOCYTES # (AUTO) 0.7 X10'3 (0-0.9); MONOCYTES % (AUTO) 7.4 % (2-12); NEUTROPHILS # (AUTO) 5.5 X10'3 (1.8-7.7); NEUTROPHILS % (AUTO) 61.4 % (42-75); PLATELET COUNT 317 X10'3 (140-440); RED BLOOD COUNT 3.62 X10'6 (4.70-6.10); RED CELL DISTRIBUTION WIDTH 15.1 % (11.5-14.5); WHITE BLOOD COUNT 8.9 X10'3 (4.5-11.0)
--- NOTE | 2022-08-08 06:47 | NUR ---
Patient in room [facility]. I have received report from Destini KUO and had the opportunity to ask questions and assume patient care.
[2022-08-08 07:10] VITALS: BP 105/67
[2022-08-08] MEDS: CefTRIAXone/D5W-Rocephin 1gm 50 ML IV SCH (07:52)
[2022-08-08] MEDS: gabapentin 300mg capsule PO SCH ×2 (07:52→21:03)
[2022-08-08] MEDS: docusate sod 100mg capsule PO SCH ×2 (07:52→21:03)
[2022-08-08] MEDS: furosemide 40mg tablet PO SCH ×2 (07:52→21:03)
[2022-08-08] MEDS: pantoprazole 40mg Tablet.DR PO SCH ×2 (07:53→21:03)
[2022-08-08] MEDS: nystatin 15 GM powder TP SCH ×3 (07:53→21:04)
[2022-08-08] MEDS: vitamin A & D ointment-NF 1 APPLIC TUBE TP SCH (08:03)
[2022-08-08 08:13] LABS: ALBUMIN 3.1 G/DL (3.4-5.0); BLOOD UREA NITROGEN 13 MG/DL (7-18); BUN/CREATININE RATIO 13.5 (5.4-32.0); CALCIUM 8.7 MG/DL (8.5-10.1); CREATININE 0.96 MG/DL (0.60-1.10); GLUCOSE 142 MG/DL (70-104); TOTAL CARBON DIOXIDE 33.3 MMOL/L (24-32); eGFR 81 ML/MIN
[2022-08-08 08:25] LABS: ANION GAP 5 (8-16); CHLORIDE 99 MMOL/L (99-107); POTASSIUM 3.5 MMOL/L (3.5-5.1); SODIUM 137 MMOL/L (135-145)
[2022-08-08 10:55] VITALS: BP 115/65
[2022-08-08 18:00] VITALS: BP 109/65
--- NOTE | 2022-08-08 19:05 | NUR ---
Problems reprioritized. Patient report given, questions answered & plan of care reviewed with Bonnie KUO.
[2022-08-08] MEDS: insulin glargine (Lantus) pen - multi-dose SQ SCH (21:00)
[2022-08-08] MEDS: traZODone 50mg tablet PO SCH (21:02)
[2022-08-08] MEDS: ARIPIPRAZOLE 15 MG TABLET PO SCH (21:02)
[2022-08-08] MEDS: atorvastatin 20mg tablet PO SCH (21:03)
[2022-08-08 21:09] VITALS: BP 105/56
[2022-08-08 22:00] VITALS: BP 126/50
[2022-08-09] MEDS: heparin, porcine 5000 units/ml vial SQ SCH ×3 (01:46→16:14)
[2022-08-09] MEDS: vancomycin/NS 1 GM ADD-VANTAGE 250 ML IV SCH ×3 (01:47→16:13)
[2022-08-09] MEDS: vitamin A & D ointment-NF 1 APPLIC TUBE TP SCH (02:11)
[2022-08-09] MEDS: ipratropium 0.5 MG/2.5ML nebule NEB SCH ×4 (03:40→21:14)
[2022-08-09 06:00] VITALS: BP 122/64
--- NOTE | 2022-08-09 06:41 | NUR ---
Patient in room [facility]. I have received report from Bonnie KUO and had the opportunity to ask questions and assume patient care.
--- NOTE | 2022-08-09 06:41 | NUR ---
Problems reprioritized. Patient report given, questions answered & plan of care reviewed with SHIELA BALLARD.
--- NOTE | 2022-08-09 08:30 | NUR ---
Reassessment: Pt continues on Sodium restricted diet w/ mostly 75-100% intake of meals likely meeting est needs at this time. LBM 08/08 receiving routine colace. No nutrition intervention implemented at this time, will continue to monitor. Rec: 1. continue Na-restricted diet 2. routine bowel care 3. weekly wts 4. monitor for updated A1C results; unsure of 6.9% accuracy given current objective data and pt hx Addendum: 08/09/22 at [address] Amended: Links added.
[2022-08-09] MEDS: furosemide 40mg tablet PO SCH ×2 (08:50→20:48)
[2022-08-09] MEDS: gabapentin 300mg capsule PO SCH ×2 (08:50→20:48)
[2022-08-09] MEDS: docusate sod 100mg capsule PO SCH ×2 (08:51→20:44)
[2022-08-09] MEDS: CefTRIAXone/D5W-Rocephin 1gm 50 ML IV SCH (08:51)
[2022-08-09] MEDS: pantoprazole 40mg Tablet.DR PO SCH ×2 (08:52→20:48)
[2022-08-09] MEDS: nystatin 15 GM powder TP SCH ×4 (08:52→21:00)
[2022-08-09 10:00] VITALS: BP 115/68
[2022-08-09 18:00] VITALS: BP 110/61
--- NOTE | 2022-08-09 18:25 | NUR ---
PATIENT SITTING IN CHAIR MOST OF DAY, ambulating at times in room, dressings changed and wounds to bilat lower legs changed and pictured . No c/o pain. Seen by Dr Hatfield . no new orders. Report given to Bonnie KUO
[2022-08-09 20:42] VITALS: BP 102/69
[2022-08-09] MEDS: ARIPIPRAZOLE 15 MG TABLET PO SCH (20:47)
[2022-08-09] MEDS: atorvastatin 20mg tablet PO SCH (20:48)
[2022-08-09] MEDS: traZODone 50mg tablet PO SCH (20:48)
[2022-08-09] MEDS: insulin glargine (Lantus) pen - multi-dose SQ SCH (20:49)
[2022-08-09 22:00] VITALS: BP 118/58
[2022-08-10] MEDS: vancomycin/NS 1 GM ADD-VANTAGE 250 ML IV SCH ×3 (01:17→17:05)
[2022-08-10] MEDS: heparin, porcine 5000 units/ml vial SQ SCH ×3 (01:17→17:01)
[2022-08-10] MEDS: ipratropium 0.5 MG/2.5ML nebule NEB SCH ×4 (03:06→21:13)
[2022-08-10 06:00] VITALS: BP 127/71
--- NOTE | 2022-08-10 06:46 | NUR ---
Problems reprioritized. Patient report given, questions answered & plan of care reviewed with SHIELA BALLARD.
--- NOTE | 2022-08-10 07:03 | NUR ---
Patient in room [facility]. I have received report from EMELY KUO and had the opportunity to ask questions and assume patient care.
[2022-08-10 07:04] LABS: BASOPHILS # (AUTO) 0.1 X10'3 (0-0.2); EOSINOPHILS # (AUTO) 0.2 X10'3 (0-0.9); EOSINOPHILS % (AUTO) 2.6 % (0-6); HEMOGLOBIN 12.9 g/dl (14.0-17.9); LYMPHOCYTES # (AUTO) 2.3 X10'3 (1.1-4.8); LYMPHOCYTES % (AUTO) 25.2 % (21-51); MEAN CORPUSCULAR HEMOGLOBIN 32.6 PG (27.0-31.0); MEAN CORPUSCULAR VOLUME 98.6 FL (78-98); MEAN PLATELET VOLUME 6.6 FL (7.4-10.4); MONOCYTES # (AUTO) 0.7 X10'3 (0-0.9); MONOCYTES % (AUTO) 7.6 % (2-12); NEUTROPHILS # (AUTO) 5.8 X10'3 (1.8-7.7); NEUTROPHILS % (AUTO) 63.6 % (42-75); PLATELET COUNT 338 X10'3 (140-440); RED BLOOD COUNT 3.96 X10'6 (4.70-6.10); RED CELL DISTRIBUTION WIDTH 15.2 % (11.5-14.5); WHITE BLOOD COUNT 9.2 X10'3 (4.5-11.0)
[2022-08-10 07:55] LABS: ALBUMIN 3.2 G/DL (3.4-5.0); ANION GAP 3 (8-16); BLOOD UREA NITROGEN 15 MG/DL (7-18); BUN/CREATININE RATIO 14.7 (5.4-32.0); CHLORIDE 99 MMOL/L (99-107); CREATININE 1.02 MG/DL (0.60-1.10); GLUCOSE 128 MG/DL (70-104); POTASSIUM 3.6 MMOL/L (3.5-5.1); SODIUM 136 MMOL/L (135-145); TOTAL CARBON DIOXIDE 33.7 MMOL/L (24-32); eGFR 76 ML/MIN
[2022-08-10] MEDS: CefTRIAXone/D5W-Rocephin 1gm 50 ML IV SCH (08:54)
[2022-08-10] MEDS: gabapentin 300mg capsule PO SCH ×2 (08:55→20:41)
[2022-08-10] MEDS: furosemide 40mg tablet PO SCH ×2 (08:55→20:40)
[2022-08-10] MEDS: pantoprazole 40mg Tablet.DR PO SCH ×2 (08:55→20:43)
[2022-08-10] MEDS: docusate sod 100mg capsule PO SCH ×2 (08:55→20:40)
[2022-08-10] MEDS: vitamin A & D ointment-NF 1 APPLIC TUBE TP SCH (08:58)
[2022-08-10] MEDS: nystatin 15 GM powder TP SCH ×3 (08:58→20:44)
[2022-08-10 10:00] VITALS: BP 106/64
[2022-08-10 18:00] VITALS: BP 107/63
--- NOTE | 2022-08-10 18:55 | NUR ---
patient seen by Dr Vasques patient needs to be encouraged to walk but is refusing . Dr Vasques aware. patient states that his legs are too sore. Time spent encouraging patient to walk, he stated that he does move around in his room, but this hasnt been observed. [facility] when patient can move better. Report given to Bonnie KUO
[2022-08-10 19:39] VITALS: BP 132/74
[2022-08-10] MEDS: ARIPIPRAZOLE 15 MG TABLET PO SCH (20:41)
[2022-08-10] MEDS: traZODone 50mg tablet PO SCH (20:42)
[2022-08-10] MEDS: atorvastatin 20mg tablet PO SCH (20:42)
[2022-08-10] MEDS: insulin glargine (Lantus) pen - multi-dose SQ SCH (20:43)
[2022-08-10 20:44] VITALS: BP 107/52
[2022-08-10] MEDS: doxycycline inj 100 MG in normal saline 100ml IV soln 100 ML IV SCH (21:38)
[2022-08-10 22:00] VITALS: BP 107/52
--- NOTE | 2022-08-10 22:28 | NUR ---
Student documentation: I have reviewed interventions, assessments performed and documented by Concepcion BARRETO.
[2022-08-11] MEDS: heparin, porcine 5000 units/ml vial SQ SCH ×3 (01:33→16:21)
[2022-08-11] MEDS: ipratropium 0.5 MG/2.5ML nebule NEB SCH ×4 (03:15→20:06)
--- NOTE | 2022-08-11 06:26 | NUR ---
Problems reprioritized. Patient report given, questions answered & plan of care reviewed with SHIELA Mckeon.
--- NOTE | 2022-08-11 06:43 | NUR ---
Patient in room [facility]. I have received report from SHIELA HAN and had the opportunity to ask questions and assume patient care.
[2022-08-11 06:56] VITALS: BP 112/71
[2022-08-11] MEDS: nystatin 15 GM powder TP SCH ×3 (08:00→21:00)
[2022-08-11] MEDS: docusate sod 100mg capsule PO SCH ×2 (08:29→21:26)
[2022-08-11] MEDS: furosemide 40mg tablet PO SCH ×2 (08:29→21:26)
[2022-08-11] MEDS: gabapentin 300mg capsule PO SCH ×2 (08:29→21:26)
[2022-08-11] MEDS ORDERED: VANCOMYCIN LEVEL IV ONE (08:30)
[2022-08-11] MEDS: doxycycline inj 100 MG in normal saline 100ml IV soln 100 ML IV SCH ×2 (08:30→21:27)
[2022-08-11] MEDS: pantoprazole 40mg Tablet.DR PO SCH ×2 (08:30→21:27)
[2022-08-11] MEDS: vitamin A & D ointment-NF 1 APPLIC TUBE TP SCH (08:31)
[2022-08-11 11:49] VITALS: BP 112/68
--- NOTE | 2022-08-11 13:28 | NUR ---
PRESSURE ULCER EDUCATION: DEFINITION: A pressure ulcer is an area of skin that breaks down when you stay in one position too long. The constant pressure against the skin reduces the blood flow to that area and the affected tissue dies. CAUSES: "Being bedridden or in a wheelchair "Fragile skin "Having a chronic condition, such as diabetes or vascular disease "Inability to move certain parts of your body without assistance "Older age "Incontinence of urine or stool SYMPTOMS: "A reddened area that DOES NOT turn white when pressed on - this can be the beginning of a pressure ulcer "A blister, deep sore or a crater - these can be advanced pressure ulcers FIRST AID: "Relieve the pressure on this area "Keep the area clean and dry "Call your primary doctor if you see any of the above symptoms "DO NOT massage the area "DO NOT use a donut shaped or ring shaped pillow- these actually interfere with the blood flow and cause complications PREVENTION: "Check for pressure ulcers everyday "Change position at least every two hours to relieve pressure "Use items that help relieve pressure- pillows, sheepskin, foam padding, and powders. "Keep skin clean and dry "Eat healthy well balanced meals "Exercise daily IF YOU SEE ANY OF THESE SYMPTOMS WHILE IN THE HOSPITAL - TELL YOUR NURSE IMMEDIATELY. IF YOU SEE ANY OF THESE SYMPTOMS WHILE AT HOME OR HAVE ANY QUESTIONS OR CONCERNS ABOUT PRESSURE ULCERS - CALL YOUR PRIMARY DOCTOR IMMEDIATELY. Addendum: 08/11/22 at 1329 by Lizet Bee RN Amended: Links added.
[2022-08-11 15:47] LABS: ABG BASE EXCESS 5.3 mmol/L (-2.0-2.0); ABG HCO3 29.5 mmol/L (22.0-26.0); ABG OXYGEN SATURATION 92.4 % (94-97); ABG PCO2 (T) 41.6 mmHg (35.0-48.0); ABG PO2 (T) 59.4 mmHg (75.0-100.0); ALLEN'S TEST POSITIVE; FCOHb 0.9 % (0.0-3.9); FLOW 0 L/min; FMetHb 0.2 % (0.0-1.5); FO2Hb 91.4 % (94-97); TOTAL HEMOGLOBIN 14.4 G/dl (14.0-17.9)
[2022-08-11 18:00] VITALS: BP 108/68
--- NOTE | 2022-08-11 18:19 | NUR ---
Problems reprioritized. Patient report given, questions answered & plan of care reviewed with SHIELA Mcgregor.
--- NOTE | 2022-08-11 18:30 | NUR ---
Patient in room [facility]. I have received report from KIRILL KUO and had the opportunity to ask questions and assume patient care.
[2022-08-11] MEDS: insulin glargine (Lantus) pen - multi-dose SQ SCH (21:00)
[2022-08-11] MEDS: ARIPIPRAZOLE 15 MG TABLET PO SCH (21:27)
[2022-08-11] MEDS: atorvastatin 20mg tablet PO SCH (21:27)
[2022-08-11] MEDS: traZODone 50mg tablet PO SCH (21:27)
[2022-08-11 22:00] VITALS: BP 97/54
[2022-08-12] MEDS: heparin, porcine 5000 units/ml vial SQ SCH ×4 (00:20→23:32)
[2022-08-12] MEDS: ipratropium 0.5 MG/2.5ML nebule NEB SCH ×4 (03:01→20:58)
[2022-08-12 06:23] VITALS: BP 140/76
--- NOTE | 2022-08-12 06:30 | NUR ---
Problems reprioritized. Patient report given, questions answered & plan of care reviewed with CYNTHIA KUO.
[2022-08-12] MEDS: nystatin 15 GM powder TP SCH ×3 (07:54→19:57)
[2022-08-12] MEDS: docusate sod 100mg capsule PO SCH ×2 (07:59→19:56)
[2022-08-12] MEDS: doxycycline inj 100 MG in normal saline 100ml IV soln 100 ML IV SCH ×2 (07:59→10:00)
[2022-08-12] MEDS: pantoprazole 40mg Tablet.DR PO SCH ×2 (07:59→19:57)
[2022-08-12] MEDS: furosemide 40mg tablet PO SCH ×2 (07:59→16:55)
[2022-08-12] MEDS: gabapentin 300mg capsule PO SCH ×2 (07:59→19:56)
[2022-08-12] MEDS: vitamin A & D ointment-NF 1 APPLIC TUBE TP SCH (08:00)
[2022-08-12 10:48] VITALS: BP 120/70
[2022-08-12 14:18] LABS: BASOPHILS # (AUTO) 0.1 X10'3 (0-0.2); BASOPHILS % (AUTO) 1.3 % (0-1); EOSINOPHILS # (AUTO) 0.2 X10'3 (0-0.9); HEMATOCRIT 41.6 % (42.0-52.0); HEMOGLOBIN 13.7 g/dl (14.0-17.9); LYMPHOCYTES # (AUTO) 2.5 X10'3 (1.1-4.8); LYMPHOCYTES % (AUTO) 25.9 % (21-51); MEAN CORPUSCULAR HEMOGLOBIN 32.5 PG (27.0-31.0); MEAN CORPUSCULAR HGB CONC 32.9 g/dL (33.0-36.5); MEAN CORPUSCULAR VOLUME 98.9 FL (78-98); MEAN PLATELET VOLUME 6.9 FL (7.4-10.4); MONOCYTES # (AUTO) 0.9 X10'3 (0-0.9); MONOCYTES % (AUTO) 9.5 % (2-12); NEUTROPHILS # (AUTO) 5.9 X10'3 (1.8-7.7); NEUTROPHILS % (AUTO) 61.3 % (42-75); PLATELET COUNT 342 X10'3 (140-440); RED BLOOD COUNT 4.21 X10'6 (4.70-6.10); RED CELL DISTRIBUTION WIDTH 15.3 % (11.5-14.5); WHITE BLOOD COUNT 9.7 X10'3 (4.5-11.0)
[2022-08-12 14:29] LABS: ALANINE AMINOTRANSFERASE 25 U/L (12-78); ALBUMIN 3.4 G/DL (3.4-5.0); ALBUMIN/GLOBULIN RATIO 0.7 (1.1-1.5); ALKALINE PHOSPHATASE 112 IU/L (46-116); ANION GAP 7 (8-16); ASPARTATE AMINO TRANSFERASE 22 U/L (10-37); BILIRUBIN,TOTAL 0.4 MG/DL (0.1-1.0); BLOOD UREA NITROGEN 14 MG/DL (7-18); BUN/CREATININE RATIO 12.2 (5.4-32.0); CALCIUM 9.2 MG/DL (8.5-10.1); CHLORIDE 98 MMOL/L (99-107); CREATININE 1.15 MG/DL (0.60-1.10); GLUCOSE 120 MG/DL (70-104); POTASSIUM 3.9 MMOL/L (3.5-5.1); SODIUM 136 MMOL/L (135-145); TOTAL CARBON DIOXIDE 31.1 MMOL/L (24-32); TOTAL PROTEIN 8.6 G/DL (6.4-8.2); eGFR 66 ML/MIN
[2022-08-12 18:00] VITALS: BP 112/62
--- NOTE | 2022-08-12 18:20 | NUR ---
Problems reprioritized. Patient report given, questions answered & plan of care reviewed with DIO KUO.
--- NOTE | 2022-08-12 18:39 | NUR ---
Patient in room [facility]. I have received report from Michelle and had the opportunity to ask questions and assume patient care.
[2022-08-12] MEDS: insulin glargine (Lantus) pen - multi-dose SQ SCH (19:55)
[2022-08-12] MEDS: traZODone 50mg tablet PO SCH (19:57)
[2022-08-12] MEDS: ARIPIPRAZOLE 15 MG TABLET PO SCH (19:57)
[2022-08-12] MEDS: atorvastatin 20mg tablet PO SCH (19:57)
[2022-08-12 22:00] VITALS: BP 138/66
[2022-08-13] MEDS: ipratropium 0.5 MG/2.5ML nebule NEB SCH ×4 (02:54→20:18)
--- NOTE | 2022-08-13 04:27 | NUR ---
REVIEWED INCOME TAX ADJUSTER ASSESSMENT AND IN AGREEMENT.
--- NOTE | 2022-08-13 06:04 | NUR ---
Problems reprioritized. Patient report given, questions answered & plan of care reviewed with
[2022-08-13 07:00] VITALS: BP 137/58
--- NOTE | 2022-08-13 07:08 | NUR ---
Patient in room [facility]. I have received report from howie KUO and had the opportunity to ask questions and assume patient care.
[2022-08-13] MEDS: docusate sod 100mg capsule PO SCH ×2 (07:49→19:41)
[2022-08-13] MEDS: gabapentin 300mg capsule PO SCH ×2 (07:49→19:31)
[2022-08-13] MEDS: furosemide 40mg tablet PO SCH (07:50)
[2022-08-13] MEDS: pantoprazole 40mg Tablet.DR PO SCH ×2 (07:50→19:35)
[2022-08-13] MEDS: heparin, porcine 5000 units/ml vial SQ SCH ×3 (07:50→19:32)
[2022-08-13] MEDS: vitamin A & D ointment-NF 1 APPLIC TUBE TP SCH (08:00)
[2022-08-13] MEDS: nystatin 15 GM powder TP SCH ×3 (08:00→21:00)
[2022-08-13 10:00] VITALS: BP 130/72
--- NOTE | 2022-08-13 14:04 | NUR ---
O2 Sat at rest on room air:__86_% If below 89%: Recovery O2 Sat at rest on ___2 LPM:__95_%:___% via_nc_(mask/nasal cannula, etc..) No further documentation is necessary. If O2 Sat did not drop below 89% on room air,ambulate patient on room air. O2 Sat while ambulating on room air:___% Recovery O2 Sat while ambulating on ___LPM:___% No further documentation is necessary. If patient does not drop below 89% while ambulating, he/she does not qualify for home O2.
--- NOTE | 2022-08-13 17:04 | NUR ---
patient ambulated 300ft around hallways. Trialed removing o2. patient o2 sats 86% . O2 @2L replaced. Patient now 90%. will continue to monitor.
[2022-08-13 18:00] VITALS: BP 97/69
--- NOTE | 2022-08-13 18:22 | NUR ---
oxygen delivered for patient for [facility]. Dressings off lower legs seen by wound team. Report given to angie KUO
[2022-08-13] MEDS: ARIPIPRAZOLE 15 MG TABLET PO SCH (19:32)
[2022-08-13] MEDS: traZODone 50mg tablet PO SCH (19:36)
[2022-08-13] MEDS: atorvastatin 20mg tablet PO SCH (19:36)
[2022-08-13] MEDS: insulin glargine (Lantus) pen - multi-dose SQ SCH (21:00)
--- NOTE | 2022-08-13 21:51 | NUR ---
Pt refused Nystatin powder x 3 at this HS.
--- NOTE | 2022-08-13 21:51 | NUR ---
Pt refused Nh
[2022-08-13 22:00] VITALS: BP 101/62
[2022-08-14] MEDS: ipratropium 0.5 MG/2.5ML nebule NEB SCH ×3 (02:51→13:47)
--- NOTE | 2022-08-14 03:26 | NUR ---
pt refused the left lower extremities wound care, it is healed, refused Nystatin powder treatment, otherwise cooperative with care.
[2022-08-14 07:00] VITALS: BP 117/71
[2022-08-14] MEDS: nystatin 15 GM powder TP SCH ×2 (08:00→12:39)
[2022-08-14] MEDS: heparin, porcine 5000 units/ml vial SQ SCH (08:10)
[2022-08-14] MEDS: pantoprazole 40mg Tablet.DR PO SCH (08:11)
[2022-08-14] MEDS: gabapentin 300mg capsule PO SCH (08:11)
[2022-08-14] MEDS: furosemide 40mg tablet PO SCH (08:11)
[2022-08-14] MEDS: docusate sod 100mg capsule PO SCH (08:11)
[2022-08-14] MEDS: vitamin A & D ointment-NF 1 APPLIC TUBE TP SCH (08:27)
[2022-08-14 10:21] VITALS: BP 112/66
[2022-08-14] MEDS ORDERED: DOXY-243 PO (11:56)
[2022-08-14] MEDS ORDERED: LISI5TAB22 PO (11:58)
[2022-08-14] MEDS ORDERED: METF-1203 PO (12:00)
--- NOTE | 2022-08-14 14:15 | NUR ---
[facility] and has perscriptions in hand and says [facility] friend at the [facility] can bring him to an open pharmacy to get them filled. [facility]. Leg wounds have healed with just dry skin. IV taken out, tele dc'd. Patient has taken all belongings from room. no meds in pharmacy. Pt appears appropriate for discharge.
== END 2022-08-14 14:05 | disposition home or self-care (01) | DRG 383 ==
LOC: ER 18:35 → ED HOLD 07-30 02:25 → SUR 3N 07-31 13:52
PROVIDERS: ADMIT Family Medicine; ATTEND Internal Medicine
DX: L03.115 Cellulitis of right lower limb (principal); I27.81 Cor pulmonale (chronic); I44.1 Atrioventricular block, second degree; Z99.81 Dependence on supplemental oxygen; D64.9 Anemia, unspecified; E11.9 Type 2 diabetes mellitus without complications; B95.62 Methicillin resistant Staphylococcus aureus infection as the cause of diseases classified elsewhere; E66.01 Morbid (severe) obesity due to excess calories; E78.5 Hyperlipidemia, unspecified; L03.116 Cellulitis of left lower limb; F17.210 Nicotine dependence, cigarettes, uncomplicated; F31.9 Bipolar disorder, unspecified; G47.33 Obstructive sleep apnea (adult) (pediatric); G89.4 Chronic pain syndrome; L30.8 Other specified dermatitis; F11.20 Opioid dependence, uncomplicated; I10 Essential (primary) hypertension; J44.9 Chronic obstructive pulmonary disease, unspecified; K21.9 Gastro-esophageal reflux disease without esophagitis; K22.70 Barrett's esophagus without dysplasia; Z96.653 Presence of artificial knee joint, bilateral; N50.89 Other specified disorders of the male genital organs; R09.02 Hypoxemia; Z59.00 Homelessness unspecified; Z80.51 Family history of malignant neoplasm of kidney; Z83.3 Family history of diabetes mellitus; Z91.199 Patient's noncompliance with other medical treatment and regimen due to unspecified reason; Z68.42 Body mass index [BMI] 45.0-49.9, adult; Z79.899 Other long term (current) drug therapy; Z71.6 Tobacco abuse counseling
CPT/HCPCS: 36415; 36600; 71045; 80048; 80053; 80061; 80202; 80305; 81003; 82550; 82803; 82948; 83036; 83605; 83735; 83880; 84100; 84145; 84443; 84484; 85007; 85018; 85025; 85610; 85730; 87040; 87070; 87075; 87077; 87081; 87102; 87186; 93005; 93306; 94640; 94760; 97110; 97116; 97161; 97530; 99285; A4615; A4649; A6222; A6223; A6446; A6449; G0378; J0696; J1200; J1644; J1815; J1940; J2543; J3370; J3490; Q0163

== ENCOUNTER 2024-01-09 09:56 | Outpatient (CLI) | payer MEDICAID ==
[~2024-01-09 09:56] MED LIST changes: +ALBU18HF2 PO; +ARIP30TA22 PO; -ATOR40TA7 PO; +ATOR40TA72 PO; -BUPR100T13 PO; +FURO20TA4 PO; +GABA600T13 PO; -GABAPENTIN 1200 MG; -HYDROCODONE 10/325; -LANS30CA37 PO; -LISI40TA13 PO; +LISI5TAB22 PO; +NAPR375T5 PO; +PANT40TA54 PO; +TIOT18CA3 INH; +TRAZ-256 PO; -ZOLP10TA PO
== END 2024-01-09 23:59 | disposition home or self-care (01) ==
LOC: RAD 09:56
PROVIDERS: ATTEND Student in an Organized Health Care Education/Training Program
DX: M19.012 Primary osteoarthritis, left shoulder (principal); M25.50 Pain in unspecified joint; F17.210 Nicotine dependence, cigarettes, uncomplicated
CPT/HCPCS: 71271; 73030

== ENCOUNTER 2024-05-06 18:57 | Emergency (ER) | payer MEDICAID ==
[~2024-05-06] VITALS: Ht 180.3 cm; Wt 144.3 kg
[2024-05-06 19:18] VITALS: TEMP 98.8
[2024-05-06 19:34] LABS: EOSINOPHILS # (AUTO) 0.4 X10'3 (0-0.9); RED CELL DISTRIBUTION WIDTH 14.6 % (11.5-14.5)
[2024-05-06 19:36] LABS: BASOPHILS # (AUTO) 0.1 X10'3 (0-0.2); BASOPHILS % (AUTO) 1.1 % (0-1); EOSINOPHILS % (AUTO) 3.1 % (0-6); HEMOGLOBIN 13.8 g/dl (14.0-17.9); LYMPHOCYTES % (AUTO) 36.3 % (21-51); MEAN CORPUSCULAR HEMOGLOBIN 33.4 PG (27.0-31.0); MEAN CORPUSCULAR HGB CONC 34.4 g/dL (33.0-36.5); MEAN PLATELET VOLUME 6.4 FL (7.4-10.4); MONOCYTES # (AUTO) 0.8 X10'3 (0-0.9); NEUTROPHILS # (AUTO) 7.4 X10'3 (1.8-7.7); NEUTROPHILS % (AUTO) 53.5 % (42-75); PLATELET COUNT 332 X10'3 (140-440); RED BLOOD COUNT 4.13 X10'6 (4.70-6.10); WHITE BLOOD COUNT 13.7 X10'3 (4.5-11.0)
[2024-05-06 19:50] LABS: ALANINE AMINOTRANSFERASE 19 U/L (12-78); ALBUMIN 3.3 G/DL (3.4-5.0); ALBUMIN/GLOBULIN RATIO 0.7 (1.1-1.5); ALKALINE PHOSPHATASE 120 IU/L (46-116); ANION GAP 9 (8-16); ASPARTATE AMINO TRANSFERASE 19 U/L (10-37); BILIRUBIN,TOTAL 0.3 MG/DL (0.1-1.0); BLOOD UREA NITROGEN 7 MG/DL (7-18); BUN/CREATININE RATIO 7.1 (10.0-20.0); CALCIUM 8.8 MG/DL (8.5-10.1); CHLORIDE 101 MMOL/L (99-107); CREATININE 0.99 MG/DL (0.60-1.10); GLUCOSE 107 MG/DL (70-104); SODIUM 138 MMOL/L (135-145); TOTAL CARBON DIOXIDE 27.9 MMOL/L (24-32); TOTAL PROTEIN 7.8 G/DL (6.4-8.2); eCRCL 88 ML/MIN; eGFR 78 ML/MIN
[2024-05-06] MEDS: normal saline 1000ml 1,000 ML IV ONE ×2 (19:50→20:48)
[2024-05-06] MEDS: fentaNYL/PF 50MCG/1 ML 2ML syringe IV ONE (19:56)
[2024-05-06] MEDS ORDERED: iohexol 350MG/ML 100ml bottle IV ONE (19:57)
[2024-05-06 20:00] LABS: PRO BRAIN NATRIURETIC PEPTIDE 34 PG/ML (0-125)
[2024-05-06 21:26] LABS: BILIRUBIN,URINE NEGATIVE (Neg); CLARITY,URINE CLEAR (Clear); COLOR,URINE YELLOW (Yellow); GLUCOSE, URINE NEGATIVE (Neg); KETONES,URINE NEGATIVE (Neg); LEUKOCYTE ESTERASE ,URINE NEGATIVE (Neg); NITRITES, URINE NEGATIVE (Neg); OCCULT BLOOD,URINE NEGATIVE (Neg); PROTEIN,URINE NEGATIVE (Neg); UROBILINOGEN,URINE 0.2 E.U/dL (0.2-1.0)
[2024-05-06 21:32] LABS: UA COLLECTION TYPE NON-SPECIFIED
[2024-05-06 21:33] LABS: URINE AMPHETAMINE SCREEN NEGATIVE (Neg); URINE BARBITUATE SCREEN NEGATIVE (Neg); URINE BENZODIAZEPINES SCREEN NEGATIVE (Neg); URINE CANNABINOID SCREEN NEGATIVE (Neg); URINE COCAINE SCREEN NEGATIVE (Neg); URINE METHADONE SCREEN NEGATIVE (Neg); URINE OPIATE SCREEN NEGATIVE (Neg); URINE PHENCYCLIDINE SCREEN NEGATIVE (Neg)
[2024-05-06 22:48] VITALS: BP 132/78; PULSE 69; RESP 17; O2SAT 98
== END 2024-05-06 22:49 | disposition home or self-care (01) ==
LOC: ER 18:57
DX: R07.89 Other chest pain (principal); K21.9 Gastro-esophageal reflux disease without esophagitis; J44.9 Chronic obstructive pulmonary disease, unspecified; Z79.899 Other long term (current) drug therapy
CPT/HCPCS: 36415; 71045; 71275; 80053; 80305; 81003; 83880; 84484; 85025; 93005; 96361; 96374; 99285; J3010; J7030; Q9967; A4615; C1758

== ENCOUNTER 2024-11-08 19:15 | Emergency (ER) | payer MEDICAID ==
[~2024-11-08] VITALS: Ht 180.3 cm; Wt 154.1 kg
[~2024-11-08 19:15] MED LIST changes: -ARIP30TA22 PO; +ARIP30TA60 PO; +GABA-1405 PO; -GABA600T13 PO; +NAPR-1479 PO; -NAPR375T5 PO
[2024-11-08] MEDS ORDERED: HYDR-3965 PO (20:58)
[2024-11-08] MEDS ORDERED: IBUP-864 PO (20:58)
[2024-11-08] MEDS: ketorolac trometh 15mg/ml vial 15 MG/ML ML IM ONE (21:07)
[2024-11-08 21:14] VITALS: BP 148/88; PULSE 88; RESP 18; TEMP 98.8; O2SAT 98
== END 2024-11-08 21:15 | disposition home or self-care (01) ==
LOC: ER 19:15
DX: S49.91XA Unspecified injury of right shoulder and upper arm, initial encounter (principal); K21.9 Gastro-esophageal reflux disease without esophagitis; J44.9 Chronic obstructive pulmonary disease, unspecified; W22.03XA Walked into furniture, initial encounter; Y93.89 Activity, other specified; Y92.89 Other specified places as the place of occurrence of the external cause; Y99.8 Other external cause status
CPT/HCPCS: 73030; 96372; 99284; J1885; A4565